=== PATIENT | male | born 1990 | race Caucasian/White ===

== ENCOUNTER 2020-01-11 09:58 | Inpatient (IN) | payer OTHER ==
[~2020-01-11] VITALS: Ht 185.4 cm; Wt 126.1 kg
[2020-01-11 10:04] VITALS: Ht 185.4 cm; Wt 126.1 kg
[2020-01-11 10:43] LABS: BASOPHIL % 1.1 % (0-2); PLATELET COUNT 246 x10^3mcL (130-400); RED CELL DISTRIBUTION WIDTH 12.2 % (11.5-14.5)
[2020-01-11 10:55] LABS: CALCIUM 8.8 mg/dL (8.5-10.1); CARBON DIOXIDE 27.5 mmol/L (21-32); CHLORIDE SERUM 100 mmol/L (98-107); GFR1 > 60 mL/min; GLUCOSE SERUM 112 mg/dL (74-106); POTASSIUM SERUM 3.8 mmol/L (3.5-5.1); SODIUM SERUM 134 mmol/L (136-145)
[2020-01-11 11:01] LABS: ALBUMIN 3.9 g/dL (3.4-5.0); ALKALINE PHOSPHATASE 104 U/L (46-116); ALT/SGPT 17 U/L (16-63); AST/SGOT 16 U/L (15-37); BILIRUBIN TOTAL 1.03 mg/dL (0.20-1.00); LIPASE 138 IU/L (73-393); TOTAL PROTEIN, SERUM 7.8 g/dL (6.4-8.2)
[2020-01-11 14:06] LABS: CHOLESTEROL/HDL RATIO 3.6; MAGNESIUM 1.9 mg/dL (1.8-2.4); PHOSPHOROUS 2.3 mg/dL (2.5-4.9)
[2020-01-11] MEDS ORDERED: MEDI-FIRST ASP325 MG PO (14:17)
[2020-01-11 18:13] LABS: microscopic required? NO
[2020-01-11 18:18] LABS: urine erythrocyte NEGATIVE (NEGATIVE)
[2020-01-11 18:36] LABS: AMPHETAMINE QUAL UR NONE DETECTED (See below)
[2020-01-11 23:55] VITALS: BP 139/89
[2020-01-12 06:30] VITALS: BP 128/80
[2020-01-12 06:51] LABS: PLATELET COUNT 261 x10^3mcL (130-400); RED CELL DISTRIBUTION WIDTH 12.1 % (11.5-14.5)
[2020-01-12 07:12] LABS: BASOPHIL % 0 % (0-2)
[2020-01-12 07:17] LABS: CALCIUM 8.6 mg/dL (8.5-10.1); CARBON DIOXIDE 29.4 mmol/L (21-32); CHLORIDE SERUM 99 mmol/L (98-107); CREATININE SERUM 0.8 mg/dL (0.7-1.3); GFR1 > 60 mL/min; GLUCOSE SERUM 94 mg/dL (74-106); MAGNESIUM 1.8 mg/dL (1.8-2.4); PHOSPHOROUS 2.5 mg/dL (2.5-4.9); POTASSIUM SERUM 3.3 mmol/L (3.5-5.1); SODIUM SERUM 135 mmol/L (136-145)
[2020-01-12 09:15] VITALS: BP 120/77
[2020-01-12 12:27] VITALS: BP 130/81
[2020-01-12 14:30] VITALS: BP 128/79
[2020-01-12 16:10] VITALS: BP 118/77
[2020-01-12 20:40] VITALS: BP 124/81
[2020-01-13 06:27] VITALS: BP 129/73
[2020-01-13] MEDS ORDERED: COL100 PO (07:47)
[2020-01-13] MEDS ORDERED: [UNRECOGNIZED DRUG - OTHER] TOP (07:50)
[2020-01-13] MEDS ORDERED: [UNRECOGNIZED DRUG - SUPPLY] TOP (07:52)
[2020-01-13 08:26] VITALS: BP 126/73
[2020-01-13 12:07] VITALS: BP 135/93
[2020-01-13 12:57] VITALS: BP 135/93
== END 2020-01-13 15:15 | disposition home or self-care (01) | DRG 254 ==
LOC: ED 09:58 → MU 12:17 → DU 12:17 → MU 23:17 → DU 01-12 05:03
PROVIDERS: Emergency Medicine; Surgery; ADMIT Student in an Organized Health Care Education/Training Program; ATTEND Student in an Organized Health Care Education/Training Program
PROC: 0H99XZZ Drainage of Perineum Skin, External Approach (ICD-10-PCS; principal; 2020-01-12 11:45)
DX: K61.0 Anal abscess (principal); E66.9 Obesity, unspecified; Z20.828 Contact with and (suspected) exposure to other viral communicable diseases; Z60.2 Problems related to living alone; Z91.040 Latex allergy status; Z83.3 Family history of diabetes mellitus; Z68.34 Body mass index [BMI] 34.0-34.9, adult; Z79.899 Other long term (current) drug therapy
CPT/HCPCS: G0378; J1956; J2175; J2405; J2543; J3010; J3490; J7030; Q0092; Q9967; U0003-CS